=== PATIENT | female | born 2000 | race Caucasian/White ===

== ENCOUNTER 2019-09-06 21:10 | Emergency (ER) | payer OTHER, SELFPAY ==
[2019-09-06 21:15] VITALS: BP 131/82; PULSE 93; RESP 15; TEMP 36.9; O2SAT 100; BMI 24.7
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
[2019-09-06] MEDS: KETOROLAC 60 MG/2 ML VIAL 30 MG IM (22:00)
[2019-09-06] MEDS: CYCLOBENZAPRINE 10 MG PREPACK 1 BOTTLE MISC (22:00)
[2019-09-06 22:05] VITALS: BP 118/77; PULSE 70; RESP 18; O2SAT 99
== END 2019-09-06 22:15 | disposition home or self-care (01) ==
PROVIDERS: Emergency Provider Emergency Medicine; Family Provider Pediatrics; PCP Pediatrics
DX: M54.6 Pain in thoracic spine (principal); V89.2XXA Person injured in unspecified motor-vehicle accident, traffic, initial encounter
CPT/HCPCS: 96372; 99283; J1885

== ENCOUNTER → 2021-10-20 14:06 | Outpatient (CLI) | payer OTHER, MEDICAID, SELFPAY ==
[2021-10-20 15:13] LABS: HCG Quantitative /Beta subunit 38567 mIU/mL
== END ==
PROVIDERS: Family Provider Pediatrics; PCP Family Medicine; Referring Provider Family Medicine; Visit Provider Family Medicine
DX: O26.851 Spotting complicating pregnancy, first trimester (principal)
CPT/HCPCS: 36415; 84702

== ENCOUNTER → 2021-10-22 09:52 | Outpatient (CLI) | payer OTHER, MEDICAID, SELFPAY ==
[2021-10-22 11:35] LABS: HCG Quantitative /Beta subunit 50287 mIU/mL
== END ==
PROVIDERS: Family Provider Pediatrics; PCP Family Medicine; Referring Provider Family Medicine; Visit Provider Family Medicine
DX: O26.851 Spotting complicating pregnancy, first trimester (principal)
CPT/HCPCS: 36415; 84702

== ENCOUNTER → 2021-11-09 10:43 | Outpatient (CLI) | payer OTHER, MEDICAID, SELFPAY ==
--- NOTE | 2021-11-09 10:44 | DI.US.S_ITS ---
PROCEDURE: US OB <= 14 WEEKS FETUS INDICATIONS: DATES OUTSIDE/PRIOR DATING DATA: Last menstrual period (LMP): 08/27/2021. LMP-based estimated date of delivery (KASSI): 06/03/2022. First dating scan (date and location): 11/09/2021. Estimated date of delivery (KASSI) from first dating scan: 06/10/2022. The calculations are made using the ultrasound generated KASSI of 06/10/2022. TECHNIQUE: Real-time scanning was performed of the fetus and maternal pelvic organs, with image documentation. COMPARISON: None. FINDINGS: Embryo: [place]-rump length 2.8 cm. Heart rate: 173 Maternal organs: Ovaries normal. Right corpus luteum cyst noted. IMPRESSION: Single live intrauterine gestation with estimated ultrasound age of 9 weeks 4 days. We strive to produce accurate, complete, and clear reports of imaging services. To assist us in improving patient care, this report was composed using standard report templates and voice recognition software. Therefore, it may contain abnormal punctuation, insertions and/or omissions. Occasional wrong-word or sound-alike substitutions may occur. Though we review the report and make efforts to correct it, we do recommend that the report be read carefully in proper context to recognize any text inaccuracies. Dictated by: Harry Arevalo M.D. on 11/09/2021 at 14:07 Approved by: Harry Arevalo M.D. on 11/09/2021 at 14:08
[2021-11-09 12:53] LABS: Add Manual Diff / Slide Review NO; Basophils Absolute Auto 0 /uL (0-100); Basophils Percent Auto 0.4 % (0-2); Eosinophils Absolute Auto 0 /uL (0-450); Eosinophils Percent Auto 0.2 % (2-4); Hematocrit 39.2 % (36-46); Hemoglobin 13.6 g/dL (12.0-16.0); Lymphocytes Absolute Auto 1600 /uL (1100-4500); Lymphocytes Percent Auto 21.1 % (25-40); Mean Corpuscular HGB Conc 34.7 % (30-36); Mean Corpuscular Hemoglobin 30.6 PG (26-34); Monocytes Absolute Auto 500 /uL (0-900); Monocytes Percent Auto 6.1 % (3-14); Neutrophils Absolute Auto 5400 /uL (1500-7000); Neutrophils Percent Auto 72.2 % (50-75); Platelet Count 176 X10^3/uL (150-400); Red Blood Cell Count 4.46 X10^6/uL (4.0-5.2); Red Cell Distribution Width 13.2 % (11.6-14.8); White Blood Cell Count 7.4 X10^3/uL (4.5-11.0)
[2021-11-09 13:37] LABS: Appearance Urine UA CLEAR; Bilirubin Urine UA NEGATIVE (NEGATIVE); Color Urine UA YELLOW; Glucose Urine UA NEGATIVE (Negative); Ketones Urine UA NEGATIVE (NEGATIVE); Leukocyte Esterase Urine UA TRACE (NEGATIVE); Nitrite Urine UA NEGATIVE (Negative); Occult Blood Urine UA 1+ (Negative); Protein Urine UA NEGATIVE (Negative); Urobilinogen Urine UA 0.2 E.U./dL (0.2); pH Urine UA 7.5 (4.5-8.0)
[2021-11-09 13:39] LABS: Bacteria Urine None Seen; RBC Urine 0-1/HPF (0-5/HPF); Squamous Epithelial Cell Urine 1-5 /HPF (0-5/HPF); WBC Urine 0-1/HPF (0-5/HPF)
[2021-11-10 07:44] LABS: RPR Screen Non Reactive (Non Reactive); Varicella IgG Antibody 1027 index (Immune >165)
[2021-11-10 20:43] LABS: Hepatitis B Surface Antigen NEGATIVE s/c (NEGATIVE); Rubella Antibody IgG 56.7 IU/mL (>15)
[2021-11-10 20:56] LABS: HIV 1 & 2 Ab/Ag 4th Gen Combo NEGATIVE (NEGATIVE); Hep C Virus Ab w/Reflex Quant NEGATIVE s/c (NEGATIVE)
== END ==
PROVIDERS: Family Provider Pediatrics; PCP Family Medicine; Referring Provider Family Medicine; Visit Provider Family Medicine
DX: Z36.87 Encounter for antenatal screening for uncertain dates (principal); Z3A.09 9 weeks gestation of pregnancy
CPT/HCPCS: 36415; 76801; 76817; 80055; 81003; 81015; 86787; 86803; 86850; 86900; 86901; 87086; 87389

== ENCOUNTER → 2022-01-11 10:48 | Outpatient (CLI) | payer OTHER, MEDICAID, SELFPAY ==
[2022-01-13 20:35] LABS: AFP, Serum 75.4 ng/mL (.); Estriol, Free 1.63 ng/mL (.); Inhibin A, Dimeric 187.62 pg/mL (.); Inhibin A, MoM 1.25 (.); Maternal Ethnicity Caucasian (.); Maternal Weight 163 lbs (.); Number of Fetuses No (.); OSBR Risk 1 IN 2155 (.); Results Report (.); Test Results *Screen Negative* (.); hCG, Serum 26237 mIU/mL (.)
== END ==
PROVIDERS: Family Provider Pediatrics; PCP Family Medicine; Referring Provider Obstetrics & Gynecology; Visit Provider Obstetrics & Gynecology
DX: Z34.82 Encounter for supervision of other normal pregnancy, second trimester (principal); Z3A.18 18 weeks gestation of pregnancy
CPT/HCPCS: 36415; 82105; 82677; 84702; 86336

== ENCOUNTER → 2022-01-25 12:25 | Outpatient (CLI) | payer OTHER, MEDICAID, SELFPAY ==
--- NOTE | 2022-01-25 12:25 | DI.US.S_ITS ---
PROCEDURE: US OB >= 14 WEEKS FETUS INDICATIONS: ANATOMY OUTSIDE/PRIOR DATING DATA: Last menstrual period (LMP): August 27, 2021. LMP-based estimated date of delivery (KASSI): June 03, 2022. First dating scan (date and location): November 09, 2021 [facility]. Estimated date of delivery (KASSI) from first dating scan: November 09, 2021. TECHNIQUE: Real-time scanning was performed of the fetus, with image documentation and biometric measurements. COMPARISON: None. FINDINGS: General: A single living intrauterine gestation is present. Presentation: Transverse head to the left. Placenta: Placental position is posterior , without previa. Amniotic fluid index: 12.9 cm, normal range is 5-24 cm. Single deepest vertical pocket is 4.3 cm. heart rate: 149 beats per minute. Maternal cervical canal: 4.9 cm long. Normal lower limit is 2.5 cm. biometrics: Biparietal diameter: 4.6 cm, 20 weeks, 0 days Head circumference: 17.4 cm, 20 weeks, 0 days Abdominal circumference: 16.1 cm, 21 weeks, 1 day Femur length: 3.4 cm, 20 weeks, 4 days Clinically estimated gestational age: 20 weeks, 4 days Composite gestational age from present scan: 20 weeks, 3 days Estimated weight and percentile: 377 g, 57% Anatomic survey: Neuro: Ventricles are non-dilated at less than 10 mm. Cisterna magna is normal at 3-11 mm. Cerebellum is normal in size and morphology. Nuchal skin fold: Normal at less than 6 mm between 14-21 weeks gestational age. Face: Nose and lips, facial profile are normal. Spine: No evidence for spina bifida. Heart: 4-chambered heart is present, with normal ventricular outflow tracts. Diaphragm: Diaphragm is intact. Stomach: Left-sided stomach is present. Kidneys: No hydronephrosis. Normal is less than 5 mm in 2nd trimester, less than 7 mm in 3rd trimester. Cord: 3-vessel cord has orthotopic insertion. Bladder: Normal in size. Extremities: All 4 extremities identified. IMPRESSION: Single live intrauterine gestation with a composite gestational age of 20 weeks, 3 days which is concordant with dates by initial scan. No sonographic anatomic abnormalities. We strive to produce accurate, complete, and clear reports of imaging services. To assist us in improving patient care, this report was composed using standard report templates and voice recognition software. Therefore, it may contain abnormal punctuation, insertions and/or omissions. Occasional wrong-word or sound-alike substitutions may occur. Though we review the report and make efforts to correct it, we do recommend that the report be read carefully in proper context to recognize any text inaccuracies. Dictated by: Cindy Ledbetter M.D. on 01/25/2022 at 16:51 Approved by: Cindy Ledbetter M.D. on 01/25/2022 at 16:54
== END ==
PROVIDERS: Family Provider Pediatrics; PCP Family Medicine; Referring Provider Family Medicine; Visit Provider Family Medicine
DX: Z34.92 Encounter for supervision of normal pregnancy, unspecified, second trimester (principal); Z3A.20 20 weeks gestation of pregnancy
CPT/HCPCS: 76811

== ENCOUNTER → 2022-03-22 09:54 | Outpatient (CLI) | payer OTHER, MEDICAID, SELFPAY ==
[2022-03-22 12:03] LABS: Hematocrit 33.7 % (36-46); Hemoglobin 11.3 g/dL (12.0-16.0)
[2022-03-22 12:19] LABS: GTT (PREG) 1 Hour PP 50gm Dose 69 mg/dL (76-139)
== END ==
PROVIDERS: Family Provider Pediatrics; PCP Family Medicine; Referring Provider Family Medicine; Visit Provider Family Medicine
DX: Z34.92 Encounter for supervision of normal pregnancy, unspecified, second trimester (principal); Z3A.24 24 weeks gestation of pregnancy
CPT/HCPCS: 36415; 82950; 85014; 85018

== ENCOUNTER → 2022-05-17 13:52 | Outpatient (CLI) | payer OTHER, MEDICAID, SELFPAY ==
[2022-05-18 15:02] LABS: Strep Grp B PCR NEG for Grp B Strep
== END ==
PROVIDERS: Family Provider Pediatrics; PCP Family Medicine; Visit Provider Family Medicine
DX: Z34.93 Encounter for supervision of normal pregnancy, unspecified, third trimester (principal); Z3A.36 36 weeks gestation of pregnancy
CPT/HCPCS: 87653

== ENCOUNTER 2022-05-24 14:11 | Outpatient (CLI) | payer OTHER, MEDICAID, SELFPAY ==
--- NOTE | 2022-05-24 15:07 | P.TNLD_ITS ---
Visit Information Visit Information Date of evaluation: 05/24/22 Primary OB Provider: Lauryn Zamora Reason for Evaluation: Yes non-stress test non-stress test reason: other (Fall on right hip at 7 AM, did not hit belly) Vital Signs Vital Signs: Temperature 36.2? blood pressure 133/86 heart rate 76, repeat blood pressure 126/65 heart rate 62 PFSH Medical History ADHD (~2015) Anxiety Depression Ear infection Eczema (~2018) Healthy adult Hearing loss (~2006) Kidney infection Migraine UTI (urinary tract infection) Surgical History Anesthesia History of appendectomy (~07/09/16) Family History Father Diabetes mellitus Family/Other Diabetes mellitus Social History marital status: number of children: 0 household members: spouse lives independently: Yes housing: other (Currently in a travel trailer, moving into a house soon.) pets and animals: Yes (Surinamese Monsivais. Aware of toxoplasmosis) education level: high school occupational status: employed current occupational exposures/hazards: No special sukhjinder needs: No seatbelt use: always water heater temp set < 120 deg: Yes working smoke detector in home: Yes fire extinguisher in home: Yes carbon monox detector in home: Yes firearms in home: Yes firearms unloaded and locked: Yes do you feel safe at home: Yes Smoking Status: Never smoker second hand exposure: No alcohol intake: former substance use type: marijuana (previous, quit when she learned she was ) during the past year weight has: remained stable well-balanced diet: daily or most days daily servings fruits/ve-4 caffeine: Yes (Aware of 200 mg/day limit) Type(s) of exercise: walking and running frequency: daily Evaluation Evaluation Baseline heart rate: 120 Variability: Moderate (11-25) monitor accelerations: Present Monitor Decelerations: Absent Category of Tracing: Reactive Diagnosis, Plan/Disposition Final Diagnosis (1) 37 weeks gestation of : Status: Acute Plan/Disposition Plan: 22-year-old at 37 weeks and 4 days here for an NST after a low-impact fall this morning at 7:00 a.m.. She did not hit her belly. Denies contractions, leaking or bleeding and reports good movement. NST reactive without contractions noted. Follow-up as needed OB Disposition: home
== END 2022-05-24 15:08 | disposition home or self-care (01) ==
LOC: OB 05-25 10:50
PROVIDERS: Family Provider Pediatrics; PCP Family Medicine; Referring Provider Family Medicine; Visit Provider Family Medicine
DX: O26.893 Other specified pregnancy related conditions, third trimester (principal); W19.XXXA Unspecified fall, initial encounter; Z3A.37 37 weeks gestation of pregnancy
CPT/HCPCS: 59025; G0378; G0379

== ENCOUNTER 2022-06-07 14:31 | Observation (INO) | payer OTHER, MEDICAID, SELFPAY ==
--- NOTE | 2022-06-07 15:45 | P.TNLD_ITS ---
Visit Information Visit Information Date of evaluation: 06/07/22 Primary OB Provider: Lauryn Zamora Reason for Evaluation: Yes non-stress test Vital Signs Vital Signs: Temperature 36.3? blood pressure 120/82 heart rate 80 PFSH Medical History ADHD (~2015) Anxiety Depression Ear infection Eczema (~2018) Healthy adult Hearing loss (~2006) Kidney infection Migraine UTI (urinary tract infection) Surgical History Anesthesia History of appendectomy (~07/09/16) Family History Father Diabetes mellitus Family/Other Diabetes mellitus Social History marital status: number of children: 0 household members: spouse lives independently: Yes housing: other (Currently in a travel trailer, moving into a house soon.) pets and animals: Yes (Green[place]ic Monsivais. Aware of toxoplasmosis) education level: high school occupational status: employed current occupational exposures/hazards: No special sukhjinder needs: No seatbelt use: always water heater temp set < 120 deg: Yes working smoke detector in home: Yes fire extinguisher in home: Yes carbon monox detector in home: Yes firearms in home: Yes firearms unloaded and locked: Yes do you feel safe at home: Yes Smoking Status: Never smoker second hand exposure: No alcohol intake: former substance use type: marijuana (previous, quit when she learned she was ) during the past year weight has: remained stable well-balanced diet: daily or most days daily servings fruits/ve-4 caffeine: Yes (Aware of 200 mg/day limit) Type(s) of exercise: walking and running frequency: daily Evaluation Evaluation Baseline heart rate: 130 Variability: Moderate (11-25) monitor accelerations: Present Monitor Decelerations: Absent Category of Tracing: Reactive Diagnosis, Plan/Disposition Final Diagnosis (1) 39 weeks gestation of : Status: Acute Plan/Disposition Plan: 22-year-old at 39 weeks and 4 days gestation sent from clinic for an NST due to indeterminate heart rate baseline. heart rate baseline 130s. NST reactive. Follow-up in clinic in 1 week or return to center as needed. OB Disposition: home
== END 2022-06-07 15:55 | disposition home or self-care (01) ==
LOC: LABOR 14:32
PROVIDERS: Admitting Provider Family Medicine; Family Provider Pediatrics; PCP Family Medicine; Referring Provider Family Medicine; Visit Provider Family Medicine
DX: O36.8330 Maternal care for abnormalities of the fetal heart rate or rhythm, third trimester, not applicable or unspecified (principal); Z3A.39 39 weeks gestation of pregnancy
CPT/HCPCS: 59025; G0378; G0379

== ENCOUNTER 2022-06-08 08:16 | Inpatient (IN) | payer OTHER, MEDICAID, SELFPAY ==
[2022-06-08] MEDS: OXYTOCIN 10 UNIT/ML VIAL IM (08:30)
--- NOTE | 2022-06-08 09:43 | P.PCNOB_ITS ---
Labor & Delivery Delivery date: 06/08/22 Intrapartal Events: Precipitous Labor < 3 hours Cervical ripening method: none Induction method: none Delivery monitor: none Route of delivery: Episiotomy description: None L&D Laceration Description: Perineal - 2nd Degree Estimated blood loss (mL): 200 Anesthesia Type: None Complications: None Narrative: PROCEDURE: at 39w5d presented in active labor with SROM at home and was admitted to Labor and Delivery. She had SROM at 3:30am, with contractions starting around 1hr later. At presentation, she was already . Pain was controlled with natural methods. After one push, she had an of a viable female with APGARs 9/9 at 8:18 without complications. The cord was cut and clamped after it stopped pulsating. The perineum and vagina were inspected with 2nd degree perineal laceration repaired with 2-O Vicryl under local anesthesia. PREPROCEDURE DIAGNOSIS: Intrauterine at 39w5d GBS negative RH positive POSTPROCEDURE DIAGNOSIS: Intrauterine at 39w5d, delivered Same as preprocedure [place] Baby 1: gender: Female Presentation: vertex Position: Left Occiput Anterior Placenta delivery description: Spontaneous Cord Vessel Description: 3 Vessels score (1 min): 9 score (5 min): 9 weight: 7 lb 10.471 oz Plan for aftercare: Routine care
--- NOTE | 2022-06-08 09:43 | P.HPOB_ITS ---
OB HPI Date/Time Date of admission: 06/08/22 Date Patient Seen: 06/08/22 History of Present Condition Chief complaint: L&D KASSI Calculator Estimated Delivery Date Method Current WG Current Estimate 06/10/22 Ultrasound #1 39w 5d Other Estimates 06/03/22 LMP (Certain) 40w 5d 06/08/22 Conception 40w 0d Estimated Gestational Age (weeks): 39w5d : 2 Para: 0 Narrative: 22yo at 39w5d who presented with leaking fluid and contractions. She states her water broke around 3:30am, and she started having contractions around 4:30am. She has had vaginal spotting. She is feeling pressure from the baby's head in her vaginal area. care: good care, initiated at week # (10) and pounds weight gain (43) Dating criteria OB: based on 1st trimester US only Ultrasounds: normal 1st trimester US and normal mid trimester US Obstetrical complications: none Medical complications OB: none Preadmission Labs Last OB Lab Results: Blood Type A Positive 11/09/21 12:28 Antibody Screen Negative 11/09/21 12:28 Hematocrit 33.7 % (36-46) L 03/22/22 11:15 Hemoglobin 11.3 g/dL (12.0-16.0) L 03/22/22 11:15 Hepatitis B Surface Antigen Negative s/c (NEGATIVE) 11/09/21 12 :28 Hepatitis C Antibody Negative s/c (NEGATIVE) 11/09/21 12:28 Rubella Antibody 56.7 IU/mL (>15) 11/09/21 12:28 Varicella-Zoster IgG Antibody 1027 index (Immune >165) 11/09/21 12:28 Glucose 1 Hour 69 mg/dL (76-139) L 03/22/22 11:15 Group B Streptococcus (PCR) Neg for grp b strep 05/17/22 13:52 -: Urine: negative Genetic Screens: Quad screen: Normal External Labs -: Urine: negative Prior (ies) Past Pregnancies Del. Date GA/Weeks Labor Lgth Wt Sex Route Outcome Anesthesia Place Delv Breastfeed Preg Comp Name 10/30/20 6 spontaneous Delivery Date: 10/30/20 Last Updated by: Carol Ann Chavira R.N. Complete SAB Evaluation Evaluation Dilation (cm): 10 Effacement (%): 100 station: +4 PFSH Medical History ADHD (~2015) Anxiety Depression Ear infection Eczema (~2018) Healthy adult Hearing loss (~2006) Kidney infection Migraine UTI (urinary tract infection) Surgical History Anesthesia History of appendectomy (~07/09/16) Family History Father Diabetes mellitus Family/Other Diabetes mellitus Social History marital status: number of children: 0 household members: spouse lives independently: Yes housing: other (Currently in a travel trailer, moving into a house soon.) pets and animals: Yes (Japanese Monsivais. Aware of toxoplasmosis) education level: high school occupational status: employed current occupational exposures/hazards: No special sukhjinder needs: No seatbelt use: always water heater temp set < 120 deg: Yes working smoke detector in home: Yes fire extinguisher in home: Yes carbon monox detector in home: Yes firearms in home: Yes firearms unloaded and locked: Yes do you feel safe at home: Yes Smoking Status: Former smoker second hand exposure: No alcohol intake: former substance use type: marijuana (previous, quit when she learned she was ) during the past year weight has: remained stable well-balanced diet: daily or most days daily servings fruits/ve-4 caffeine: Yes (Aware of 200 mg/day limit) Type(s) of exercise: walking and running frequency: daily Meds Home Medications and Allergies Home Medications Medication Instructions Recorded Confirmed Type prenat.vits,balta,kpj-uzzs-swaco 1 tab PO DAILY 11/10/21 06/08/22 History Allergies Allergy/AdvReac Type Severity Reaction Status Date / Time adhesive AdvReac Rash Verified 06/07/22 14:06 OB Exam Narrative Exam Narrative: Gen: NAD, sitting comfortably in bed, appears well CV: RRR, no murmurs Resp: clear to auscultation bilaterally Abd: soft, nontender, gravid Ext: no edema Assessment and Plan Assessment and Plan Assessment and Plan narrative: 22yo at 39w5d who presented in active labor, and had a precipitous vaginal delivery immediately at presentation. No complications with her . Rh positive, GBS negative. - Refer to delivery note - Normal care
[2022-06-08 09:59] VITALS: BP 120/72
[2022-06-08] MEDS: IBUPROFEN 600 MG TABLET PO ×3 (10:22→22:57)
[2022-06-08] MEDS: ACETAMINOPHEN 325 MG TABLET 650 MG PO ×3 (10:22→22:58)
[2022-06-08 14:15] LABS: Add Manual Diff / Slide Review NO; Basophils Absolute Auto 100 /uL (0-100); Basophils Percent Auto 0.3 % (0-2); Eosinophils Absolute Auto 0 /uL (0-450); Hematocrit 30.4 % (36-46); Hemoglobin 9.7 g/dL (12.0-16.0); Lymphocytes Absolute Auto 1100 /uL (1100-4500); Mean Corpuscular HGB Conc 31.9 % (30-36); Mean Corpuscular Hemoglobin 26.7 PG (26-34); Mean Corpuscular Volume 83.8 fL (80-100); Monocytes Absolute Auto 900 /uL (0-900); Monocytes Percent Auto 5.8 % (3-14); Neutrophils Absolute Auto 13800 /uL (1500-7000); Neutrophils Percent Auto 86.9 % (50-75); Platelet Count 177 X10^3/uL (150-400); Red Blood Cell Count 3.63 X10^6/uL (4.0-5.2); Red Cell Distribution Width 14.5 % (11.6-14.8); White Blood Cell Count 15.9 X10^3/uL (4.5-11.0)
[2022-06-09] MEDS: ACETAMINOPHEN 325 MG TABLET 650 MG PO (04:50)
[2022-06-09] MEDS: IBUPROFEN 600 MG TABLET PO (04:50)
--- NOTE | 2022-06-09 08:01 | P.DS_ITS ---
Discharge Providers Provider Date of admission: 06/08/22 08:16 Discharge Date: 06/09/22 Primary care physician: Lauryn Zamora DO Consults: 06/09/22 09:42 Consult to Civil Engineering Professor Routine Comment: Discharge provider: Brenna Palafox MD Summary Hospital Course Date Patient Seen: 06/09/22 Diagnoses: Intrauterine at 39w5d GBS negative RH positive Spontaneous vaginal delivery Hospital Course: The pt presented in active labor and had a precipitous spontaneous vaginal delivery of a viable baby girl without complications. A second degree perineal laceration was then repaired. , there were no complications. At the time of discharge she was voiding, ambulating, and passing flatus. Her lochia was decreasing appropriately. She was with good latch after baby had a frenotomy. Her pain was well controlled. She will f/u in 6 weeks for check. She is undecided regarding contraception, but does not desire OCPs. Peripartum Data Infant Delivery Method: Natural Vaginal Laceration Description: Perineal - 2nd Degree Episiotomy description: None Procedures: Spontaneous vaginal delivery complications: none [place] 1: Gender: Female Disposition of : home Discharge Diagnosis (1) Spontaneous vaginal delivery: Status: Acute Status at Discharge Cognitive/behavioral status at discharge: oriented Functional status at discharge: independent ambulation Overall status at discharge: patient is progressing back to baseline Time Spent with Patient Time attestation: Total time spent providing and/or coordinating discharge services: Objective Labs Result Diagrams: 06/08/22 14:06 Labs: Laboratory Results - last 24 hr 06/08/22 14:06 WBC 15.9 H RBC 3.63 L Hgb 9.7 L Hct 30.4 L MCV 83.8 MCH 26.7 MCHC 31.9 RDW 14.5 Plt Count 177 Neut % (Auto) 86.9 H Lymph % (Auto) 7.0 L [place] % (Auto) 5.8 Eos % (Auto) 0.0 L Baso % (Auto) 0.3 Neut # (Auto) 21891 H Lymph # (Auto) 1100 [place] # (Auto) 900 Eos # (Auto) 0 Baso # (Auto) 100 Exam Narrative Exam Narrative: Gen: NAD, sitting comfortably in bed, appears well CV: RRR, no murmurs Resp: clear to auscultation bilaterally Abd: soft, appropriately tender, fundus firm and below the umbilicus, nondistended Ext: no edema Discharge Plan Discharge Plan Patient Disposition: Home Discharge orders & Medications Prescriptions: New acetaminophen 325 mg Tablet 650 mg PO Q6HR PRN (Reason: Pain, Mild (1-3)) Qty: 30 0RF docusate sodium 100 mg Capsule 100 mg PO DAILY Qty: 30 0RF ibuprofen 600 mg Tablet 600 mg PO Q6HR PRN (Reason: Pain, Mild (1-3)) Qty: 30 0RF Continued prenat.vits,balta,iat-uqku-ikacs Tablet 1 tab PO DAILY Follow up/Referrals: Lauryn Zamora DO [Primary Care Provider] - 6 Weeks Diet/Activity/Treatments Diet: Diet as Tolerated and Regular Skin/Wound/Dressing Care Report to your healthcare provider any signs of infection, such as:: chills, fever, increased pain and unusual drainage Visit Report/Discharge Packet Instructions: DI for Labor and Delivery, Vaginal Visit Report Forms: Patient Portal/API, Stroke Signs & Symptoms Discharge Data Primary Care Provider: Lauryn Zamora
[2022-06-09] MEDS: PRENATAL VIT,CALC/IRON/FOLIC 1 TABLET 1 TAB PO (09:05)
[2022-06-09] MEDS: DOCUSATE 100 MG CAPSULE PO (09:05)
[2022-06-09 09:18] VITALS: BP 113/78; PULSE 88; RESP 16; TEMP 36.7
== END 2022-06-09 13:10 | disposition home or self-care (01) | DRG 560 ==
PROVIDERS: Admitting Provider Family Medicine; Family Provider Pediatrics; PCP Family Medicine; Referring Provider Family Medicine; Visit Provider Family Medicine
DX: O62.3 Precipitate labor (principal); Z3A.39 39 weeks gestation of pregnancy; Z37.0 Single live birth; O70.1 Second degree perineal laceration during delivery; Z67.10 Type A blood, Rh positive; O36.8330 Maternal care for abnormalities of the fetal heart rate or rhythm, third trimester, not applicable or unspecified
CPT/HCPCS: 36415; 59025; 59409; 85025; G0378; G0379; J2590

== ENCOUNTER → 2023-03-17 13:55 | Outpatient (CLI) | payer OTHER, MEDICAID, SELFPAY ==
[2023-03-17 17:04] LABS: Urine N gonorrhoeae NOT DETECTED
[2023-03-17 17:05] LABS: Urine Chlamydia NOT DETECTED
== END ==
PROVIDERS: Family Provider Pediatrics; PCP Family Medicine; Visit Provider Physician Assistant
DX: R30.0 Dysuria (principal)
CPT/HCPCS: 81002; 81025; 87086; 87210; 87491; 87591